=== PATIENT | female | born 1995 | race Caucasian/White ===

== ENCOUNTER → 2020-01-28 | Outpatient (CLI) | payer OTHER ==
[~2020-01-28] MED LIST: MESTINON60 MG PO; PNV 29-1 TABLE1 EACH PO; POTASSIUM99 M1 PO; PREDNISONE 20 M20 M1 PO; VISTARIL50 MG PO; VITAMIN C1000 MG PO
== END ==
LOC: LAB 08:59
PROVIDERS: ATTEND Surgery Vascular Surgery
DX: Z20.828 Contact with and (suspected) exposure to other viral communicable diseases (principal)

== ENCOUNTER → 2020-01-31 | Outpatient (CLI) | payer OTHER ==
[~2020-01-31] VITALS: Ht 170.2 cm; Wt 74.8 kg
[2020-01-31 10:10] VITALS: BP 125/77
[2020-01-31 12:30] VITALS: BP 125/77
--- NOTE | 2020-01-31 14:34 | NUR ---
HERE FOR 1ST OF 3 IVIG INFUSIONS FOR MYASTHENIA GRAVIS IN PREP FOR SURGERY ON FRIDAY TO REMOVE HER THYMUS. 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 ALL LABS WERE DRAWN AT HER PREOP APPT ON FRIDAY AND FAXED TO DR. PENN. PICC PLACED BY VASCULAR ACCESS NURSE. PT ALREADY ON PREDNISONE AND ORDER INDICATES NOT NEED FOR PREMEDS. PT WAS INSTRUCTED SHE CAN TAKE TYLENOL IF NEEDED. PT HAS HAD A 5 DAY COURSE OF IVIG IN THE PAST AND STATES SHE DID NOT HAVE ANY UNTOWARD REACTION TO THAT. CHECKED IN WITH PHARMACY WHO CALLED DR. PENN TO UPDATE DOSE BASED ON PT'S CURRENT WT OF 165 SO 50GM NOW ORDERED DAILY X 3 DAYS INSTEAD OF 60GM. INFUSION STARTED AT 44/H THEN INCREMENTALLY INCREASED Q 20-30 MIN TO MAX OF 200ML/H AND COMPLETED IN 3H 29MIN. PT DENIES ANY UNTOWARD EFFECTS AT THIS TIME. PICC SITE REMAINS D/I, WRAPPED TO KEEP IT SECURE. PT DISMISSED IN STABLE CONDITION. SCHEDULED TO RETURN AGAIN IN THE MORNING FOR DOSE #2.
== END ==
LOC: OPONC 09:49
PROVIDERS: ATTEND Psychiatry & Neurology Neuromuscular Medicine
DX: G70.00 Myasthenia gravis without (acute) exacerbation (principal)
CPT/HCPCS: 27000; 95000; 95001

== ENCOUNTER → 2020-02-01 | Outpatient (CLI) | payer OTHER ==
[2020-02-01 11:05] VITALS: BP 122/69
--- NOTE | 2020-02-01 15:53 | NUR ---
IN FOR DAY2 OF GAMUNEX C FOR MYASTHENIA GRAVIS AND PRE-SURGERY. PATIENT STATED FEELING WELL WITH NO SIDE EFFECTS NOTED FROM 1ST INFUSION YESTERDAY. VITAL SIGNS STABLE. TITRATED GAMUNEX C PER PROTOCOL WITH A MAX RATE OF 200ML/HR AND TOLERATED WELL WITHOUT INCIDENT. FLUSHED PICC LINE AND DISMISSED IN GOOD CONDITION. TO RETURN TOMORROW FOR FINAL INFUSION.
== END ==
LOC: OPONC 10:43
PROVIDERS: ATTEND Psychiatry & Neurology Neuromuscular Medicine
DX: G70.00 Myasthenia gravis without (acute) exacerbation (principal)
CPT/HCPCS: 95000; 95001

== ENCOUNTER 2020-02-03 05:54 | Inpatient (IN) | payer OTHER ==
[2020-01-28 11:18] LABS: URINE BILIRUBIN NEGATIVE (Negative); URINE BLOOD TRACE (Negative); URINE CLARITY SL CLOUDY; URINE COLOR YELLOW; URINE GLUCOSE-RANDOM* NEGATIVE (Negative); URINE KETONES NEGATIVE (Negative); URINE NITRITE-REFLEX NEGATIVE (Negative); URINE PROTEIN (DIPSTICK) NEGATIVE (Negative); URINE UROBILINOGEN 0.2 E.U./dl (0.2-1.0)
[2020-01-28 11:19] LABS: ABSOLUTE NEUTROPHILS 3.5 thou/uL (1.4-8.2); BASOPHILS 0.9 % (0.0-2.0); HEMATOCRIT 39.3 % (37.0-47.0); HEMOGLOBIN 13.4 gm/dL (12.0-15.0); LYMPHOCYTES 39.5 % (24.0-44.0); MCHC 34.2 g/dL (28.0-37.0); MCV 87.8 fL (80.0-100.0); MONOCYTES 9.6 % (1.0-8.0); PLATELET COUNT 313 thou/uL (150-400); RBC 4.48 mil/uL (4.20-5.00); RDW 13.4 % (10.5-14.5); WBC 7.4 thou/uL (4.0-11.0)
[2020-01-28 11:20] LABS: URINE LEUKOCYTES-REFLEX 3+ (Negative)
[2020-01-28 11:34] LABS: BACTERIA-REFLEX 1-9 Few /HPF (None Seen); CASTS None Seen /LPF (None Seen); CRYSTALS None Seen /LPF (None Seen); SQUAMOUS 0-3 Few /LPF (0-3); URINE RBC None Seen /HPF (0-2); URINE WBC-REFLEX 6-15 Few /HPF (0-5)
[2020-01-28 11:35] LABS: ALBUMIN 4.1 g/dL (3.4-5.0); CALCIUM 8.8 mg/dL (8.5-10.1); CREATININE 0.8 mg/dL (0.6-1.0); POTASSIUM 3.8 mmol/L (3.5-5.1); TOTAL BILIRUBIN 0.6 mg/dL (0.2-1.0); TOTAL PROTEIN 6.6 g/dL (6.4-8.2)
[2020-01-28 11:36] LABS: APTT 25.7 Seconds (24.5-32.8); PROTIME 10.4 Seconds (9.3-11.4)
[~2020-02-03] VITALS: Ht 170.2 cm; Wt 75.6 kg
[2020-02-03] VITALS (18 sets, daily range): BP systolic 102–126; BP diastolic 57–76
--- NOTE | ~2020-02-03 | HC ---
[facility] [place] [address] CONSULTATION Name: ZEKE BAIRES Room #: 248-P ADM IN M.R.#: [id number] Admission: 02/03/20 Attend Phys: Ricardo Ramirez MD Discharge: Date of : 89 Report #: [id number] THIS REPORT FOR: cc: Ashok Scott. Ashok Davison. Martín Merida MD ~ DATE OF SERVICE: 02/03/2020 HISTORY OF PRESENT ILLNESS: This 24-year-old female patient who is well known to me from her prior hospitalization in [place] and multiple office visits. She has myasthenia gravis. Her antibodies are strongly positive. She also had other issues like migraine and at one time, she was diagnosed with pseudotumor cerebri also. She was admitted with thymectomy and she underwent a thymectomy. She said she is doing well after thymectomy. She did take her Mestinon this morning. She also took her steroids. Her blood pressure is running high and Dr. Mclaughlin is managing this blood pressure. It is mostly systolic high blood pressure because she never had any trouble with blood pressure before. REVIEW OF SYSTEMS: Positive for myasthenia gravis, which has been pretty significant. She also developed fatty liver when we gave her Imuran. Imuran was __. PAST MEDICAL HISTORY: Positive for myasthenia gravis as well as a migraine. FAMILY HISTORY: Unremarkable. SOCIAL HISTORY: She is . She works as a nurse. Her recent test was negative. We had got an MRI done and that also was unremarkable as I understand. PHYSICAL EXAMINATION: Indicate she is somewhat anxious, but she said she is doing well. She is alert and responsive. She can follow simple command. She is feeling weak in generalized fashion, but she says she has no ptosis, no problem with the voice as she usually have. Rest of the neurological examination is difficult with all the lines she has. IMPRESSION: 1. Myasthenia gravis, which appeared to be stable after surgery. 2. I talked to the nurses earlier and talked to them again now and I called Dr. Mclaughlin, the hospitalist managing the blood pressure. I discussed with him that we should avoid calcium channel genoveva and beta blockers on her because of myasthenia gravis. He is going to use hydralazine, which is considered drug of choice for hypertension in myasthenia gravis. I told the nurse the same thing and she is going to coordinate that with Dr. Mclaughlin. If new medication is started in this patient, I will suggest checking with pharmacy to make sure that [address] [address] CONSULTATION Name: DEQUANZEKE L Room #: 248-P [facility] IN M.R.#: [id number] Admission: 02/03/20 Attend Phys: Ricardo Ramirez MD Discharge: Date of : 89 Report #: [id number] is not contraindicated for myasthenia gravis. Dr. Mclaughlin is considering that the blood pressure may be just because of pain and anxiety and I agree with him because I have never seen her having hypertension and her blood pressure with cough looks okay and only with a line does not look okay and I am not sure which one to rely on. In any event, I will defer that evaluation and management to Dr. Mclaughlin, but a calcium channel genoveva and beta genoveva should be avoided in this patient. I discussed the situation with her. She is able to take Mestinon for the time being. Therefore, I do not think we need to do anything different. She is able to take p.o. We already gave her gamma globulin. So, I do not think we need to give her any extra dose of steroids, but she got some anyway, so she should be stable from that perspective, but need to be closely watched in ICU. I had talked to her last night after and seen her yesterday and I talked to her again and I talked to Dr. Ramirez, Dr. Mclaughlin and patient's nurses in detail. Total time spent about 50 minutes and majority counseling and coordinating and looking at multiple records she had in the office in the computer. By: 1840 16 Martín Ordaz MD /nt
--- NOTE | 2020-02-03 13:58 | NUR ---
PATIENT IN ICU FROM RECOVERY, HYPERTENSIVE PER A-LINE. DROWSY BUT AROUSABLE AND IS ORIENTED. STARTED ON CARDENE GTT FOR BP CONTROL AND MEDICATED FOR PAIN WITH PRN MEDS. DRESSING ON STERNAL INCISION INTACT AND ATTACHED TO JOHN VAC AND CHEST TUBE PRESENT AND TO SUCTION. SARAVIA IN PLACE AND ORDERS RECEIVED TO DC. AT THE BEDSIDE. WILL CONTINUE WITH POC.
[2020-02-04] VITALS (23 sets, daily range): BP systolic 106–133; BP diastolic 62–95
[2020-02-04 06:22] LABS: HEMATOCRIT 34.1 % (37.0-47.0); HEMOGLOBIN 11.5 gm/dL (12.0-15.0); MCH 29.7 pg (26.0-34.0); MCHC 33.7 g/dL (28.0-37.0); MCV 88.3 fL (80.0-100.0); RBC 3.86 mil/uL (4.20-5.00); RDW 13.6 % (10.5-14.5); WBC 12.9 thou/uL (4.0-11.0)
[2020-02-04 06:44] LABS: CALCIUM 8.5 mg/dL (8.5-10.1); CREATININE 0.7 mg/dL (0.6-1.0); POTASSIUM 3.5 mmol/L (3.5-5.1)
--- NOTE | 2020-02-04 08:44 | NUR ---
ASSUMED PT CARE AT 1900. VSS EXCEPT PT WHICH WAS IN 170s FROM ART LINE. SPOKE WITH DR CLARK WHO ASKED THAT I D/C CARDIZEM AND GIVEN PT PRN HYDRALAZINE TO MANAGE BP. PT RESTED WELL ALL NOC. PAIN CONTROLLED PRN. PT IS STABLE. WILL CONTINUE TO MONITOR PER POC
--- NOTE | 2020-02-04 14:40 | NUR ---
ASSESSMENT: CM REVIEWED CHART. CM ATTEMPTED TO CONTACT PT VIA PHONE BUT NO ANSWER. CM REACHED OUT TO PTS . PT IS S/P THYMECTOMY. PT WORKS AT [employer] AND IS FULLY INDEPENDENT WITH ADLS AND AMBULATION. PT HAS HX OF MYASTHENIA GRAVIS. PT IS FULLY INDEPENDENT WITH ADLS AND AMBULATION. PLANS ARE FOR PATIENT TO POSSIBLY TRANSFER TO CCU SOON. CM WILL CONTINUE TO FOLLOW TO ASSIST NEEDED.
--- NOTE | 2020-02-04 15:52 | NUR ---
ASSUMED CARE OF PT AT 0700. PT VERY ACTIVE IN PROGRESSING IN PLAN OF CARE THROUGHOUT SHIFT. AT 0800 PT HOVERING SYSTOLICS IN HIGH 15O'S LOW 160'S. PERRI FANG AWARE STATED TO WATCH THE TREND OF BP AND QUESTIONING THE ACCURACY OF ART LINE BP. OK TO DC ART LINE PER SUZETTE. ART LINE DC AT 1200. PT AMBULATING IN [place] W/STAND BY ASSIST @ 1230 NOW UP TO CHAIR. 1400 PT BACK IN BED AND CHEST TUBE REMOVED PER XIOMARA. AFEBRILE. ADEQUATE OUTPUT.
--- NOTE | 2020-02-04 19:51 | NUR ---
PT. ARRIVED AT FLOOR CLOSE TO 1700; PT. AOX4; C/O PAIN OVER CHEST; PRN PAIN MEDICATION GIVEN; RE-ASSESSMENT PAIN 08/26; IV PRN PAIN MEDICATION GIVEN; RE-ASSESSMENT PAIN 03/29; EDUCATED ABOUT CALLING BEFORE GETTING UP FROM BED; [facility]; SR ON THE MONITOR; DRESSING C/D/I; EDUCATED ABOUT CALLING IF NOTICED VIBRATION ON PICCO DRESSING; ST. UNDERSTANDING; ASSESSMENT CHARGED; FOLLOWING POC; PASSED ON REPORT;
[2020-02-05 04:00] VITALS: BP 129/69
--- NOTE | 2020-02-05 04:55 | NUR ---
ASSESSMENTS CHARTED, MEDS CHARTED GIVEN. PATIENT TRANSFERED FROM ICU DURING DAY SHIFT AFTER HAVING A THYMECTOMY ON 02/03/20. PATIENT RESTING IN BED DURING SHIFT. UP TO BATHROOM WITH STANDBY ASSIST. PATIENT USING STERNAL PRECAUTIONS WHEN MOVING OR COUGHING. STERNAL DRESSING IS DRY AND INTACT. PATIENT C/O PAIN 6 TO 8 OUT OF 10 DURING SHIFT. MEDS GIVEN CHARTED. FALL PRECAUTIONS IN PLACE DURING SHIFT. CHEST XRAY SCHEDULED FOR MORNING.
[2020-02-05 07:18] VITALS: BP 127/73
[2020-02-05 11:00] VITALS: BP 131/80
--- NOTE | 2020-02-05 12:44 | O ---
[facility] [place] [address] OPERATIVE REPORT Name: ZEKE BAIRES Room #: 210-P [facility] IN M.R.#: [id number] Admission: 02/03/20 Attend Phys: Ricardo Ramirez MD Discharge: Date of : 89 Report #: [id number] THIS REPORT FOR: cc: Ashok Scott. Ashok Davison. Ricardo Singh MD ~ DATE OF SERVICE: 02/03/2020 PREOPERATIVE DIAGNOSIS: Myasthenia gravis. POSTOPERATIVE DIAGNOSIS: Myasthenia gravis. OPERATION: Sternotomy with thymectomy. SURGEON: Ricardo Ramirez MD [employer]OR MECHANIC: PERRI Donnelly. ANESTHESIA: General. INDICATIONS: The patient is a 24-year-old with myasthenia gravis. The patient has required not only Mestinon, but steroids. 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 FINDINGS AND TECHNIQUE: After general anesthesia was established, exposure was obtained through median sternotomy. The dissection was begun by elevating the fat pad off of the anterior pericardium and extending superiorly along the right side, we found a nice distinct margin between the thymic fat and peripheral fat. This dissection was continued from right to left by skeletonizing the innominate vein and dividing venous tributaries from thymus to it. The thymic horn that extended up into the neck was dissected down. Dissection continued leftward where the margin of the thymus was less distinct, but on this side, we entered the pleura, identified the phrenic vein and stayed well away from it to complete the dissection. When the thymus was removed and submitted for permanent pathology, the wound was inspected. Hemostasis was ascertained. A 24 Jim drain was brought through separate stab wound and then the chest was closed in the usual fashion for sternotomy. The patient tolerated the procedure [address] [address] OPERATIVE REPORT Name: ZEKE BAIRES Room #: 210-P [facility] IN .R.#: [id number] Admission: 02/03/20 Attend Phys: Ricardo Ramirez MD Discharge: Date of : 89 Report #: [id number] well and was taken to the recovery area. Efforts were made to extubate the patient prior to leaving the operating room. All counts reported as correct. <ELECTRONICALLY SIGNED> By: Ricardo Ramirez MD 02/05/20 1244 31 53 Ricardo Ramirez MD /nt
--- NOTE | 2020-02-05 13:01 | NUR ---
RECEIVED PT'S CARE AROUND 0715; PT. ON BED; RESTING WITH EYES CLOSED; INTERRUPTED AT FOR SHIFT CHANGE; A0X4; PAIN 04/26; DURING AM ASSESSMENT AM MEDICATIONS GIVEN; PRN PAIN MEDICATION GIVEN; RE-ASSESSMENT PT. 04/26; EDUCATED ABOUT THE IMPORTANCE OF USING IS; [facility]; PRN MIRALAX GIVEN; EDUCATED ABOUT THE IMPORTANCE OF WALKING IN ORDER TO PROMOTE BM; [facility]; EDUCATED ABOUT CALLING IF NEEDED WHEN GETTING UP FROM BED OR CHAIR; [facility]; AMBULATED AROUND THE UNIT TWICE; TOLERATED WELL; REMAINED TO WALK SLOWLY AND TAKE DEEP BREATHS; ST[facility] UNDERSTANDING; CHEST TUBE DRESSING CHANGED; D/C ORDERS ON PLACED; PT. EDUCATED ABOUT D/C ORDERS; [facility] UNDERSTANDING; ASSESSMENT CHARGED; FOLLOWING POC; WILL WORK ON D/C PAPERS;
[2020-02-05 13:06] VITALS: BP 131/80
--- NOTE | 2020-02-07 07:53 | EKG ---
[address] [address] ELECTROCARDIOGRAM REPORT Name: ZEKE BAIRES Room #: 210-P [facility]#: [id number] Admission: 02/03/20 Attend Phys: Ricardo Ramirez MD Discharge: 02/05/20 Date of : 94 Report #: [id number] [facility] Test Date: 2020-01-28 Test Time: 11:02:59 Pat Name: ZEKE BAIRES Department: Room: Gender: F Product Scientist: Simin LEES : 1995 Requested By: Ricardo Ramirez Order Number: [id number] : Rodney Candelaria Measurements Intervals Shelley Rate: 59 P: 61 OH: 128 QRS: 53 QRSD: 89 T: 40 QT: 391 QTc: 388 Interpretive Statements Sinus rhythm No previous ECG available for comparison Electronically Signed On 01-28-2020 15:57:43 FACULTY INSTRUCTOR by Rodney Candelaria [email or web address] <ELECTRONICALLY SIGNED> By: Rodney Candelaria MD, [facility] 01/28/20 1557 1102 1102 Rodney Candelaria MD, FACC /EPI
== END 2020-02-05 13:42 | disposition home or self-care (01) | DRG 42 ==
LOC: ICU 05:54 → TBA 05:54 → PRE 09:29 → ICU 11:46 → PRE 11:47 → 2N 02-04 16:52
PROVIDERS: Physician Assistant; ADMIT Surgery Vascular Surgery; ATTEND Surgery Vascular Surgery
PROC: 07TM0ZZ Resection of Thymus, Open Approach (ICD-10-PCS; principal; 2020-02-03)
DX: G70.00 Myasthenia gravis without (acute) exacerbation (principal); G43.909 Migraine, unspecified, not intractable, without status migrainosus; I10 Essential (primary) hypertension; Z20.828 Contact with and (suspected) exposure to other viral communicable diseases
CPT/HCPCS: 10078; 10081; 50010; 50101; 50386; 50456; 50497; 51301; 51467; 52259; 52314; 54118; 56524; 56525; 56526; 56527; 56528; 56531; 57093; 57116; 62110; 62900; 65020; 65040; 70005

== ENCOUNTER → 2020-02-14 | Outpatient (CLI) | payer OTHER ==
[2020-02-14 10:57] LABS: ABSOLUTE NEUTROPHILS 6.3 thou/uL (1.4-8.2); BASOPHILS 0.6 % (0.0-2.0); EOSINOPHILS 0.9 % (0.0-3.0); HEMATOCRIT 41.5 % (37.0-47.0); HEMOGLOBIN 13.8 gm/dL (12.0-15.0); MCH 29.3 pg (26.0-34.0); MCHC 33.2 g/dL (28.0-37.0); MCV 88.2 fL (80.0-100.0); PLATELET COUNT 414 thou/uL (150-400); POLYS 59.5 % (36.0-66.0); RDW 13.4 % (10.5-14.5); WBC 10.6 thou/uL (4.0-11.0)
[2020-02-14 11:09] LABS: ANION GAP 9 mmol/L (7-16); BUN 9 mg/dL (7-18); CALCIUM 9.8 mg/dL (8.5-10.1); CHLORIDE 102 mmol/L (98-107); CO2 29 mmol/L (21-32); CREATININE 0.9 mg/dL (0.6-1.0); GLUCOSE 79 mg/dL (74-106); POTASSIUM 3.9 mmol/L (3.5-5.1); SGOT 43 U/L (15-37); SGPT 75 U/L (14-59); SODIUM 140 mmol/L (136-145)
[2020-02-14 11:31] LABS: TOTAL BILIRUBIN 0.3 mg/dL (0.2-1.0); TOTAL PROTEIN 8.8 g/dL (6.4-8.2)
[2020-02-14 20:05] LABS: COMPLEMENT-C3 172 mg/dL (82-167); COMPLEMENT-C4 22 mg/dL (12-38)
== END ==
LOC: LAB 09:47
PROVIDERS: ATTEND Nurse Practitioner Family
DX: R76.8 Other specified abnormal immunological findings in serum (principal)

== ENCOUNTER → 2021-02-20 | Outpatient (CLI) | payer OTHER | LOC: ULTRA 14:02 | PROVIDERS: ATTEND Obstetrics & Gynecology | DX: N83.201 Unspecified ovarian cyst, right side (principal) ==